=== PATIENT | male | born 1985 ===

== ENCOUNTER 2021-06-21 12:24 | Emergency (ER) | payer OTHER ==
[2021-06-21] MEDS ORDERED: MUPIROCIN30 GM TP (13:01)
[2021-06-21] MEDS ORDERED: CEPHALEXIN500 MG PO (13:01)
[2021-06-21] MEDS ORDERED: BACTRIM DS TAB1 EACH PO (13:01)
== END 2021-06-21 13:37 | disposition home or self-care (01) ==
LOC: ER1 12:24
DX: L01.00 Impetigo, unspecified (principal); F17.200 Nicotine dependence, unspecified, uncomplicated
CPT/HCPCS: 99282